=== PATIENT | female | born 1995 ===

== ENCOUNTER 2025-05-13 08:15 | Inpatient (IN) | payer OTHER ==
[~2025-05-13] VITALS: Ht 152.4 cm; Wt 80.7 kg
[2025-05-13 09:12] VITALS: BP 106/69
[2025-05-13 09:15] VITALS: BP 120/77
[2025-05-13 09:49] LABS: BASO % 0.9 % (0.1-1.2); EOS # 0.08 (0.04-0.54); EOS % 1.8 % (0.7-7.0); LYMPH # 1.63 (1.18-3.74); LYMPH % 36.5 % (19.3-53.1); MEAN PLATELET VOLUME 9.60 fl (9.4-12.4); MONO # 0.26 (0.24-0.82); MONO % 5.8 % (4.7-12.5); NEUT # 2.45 (1.56-6.13); NEUT % 55.0 % (34.0-71.1); RED CELL DISTRIBUTION WIDTH 13.9 % (11.6-14.4)
[2025-05-13 09:51] LABS: URINE APPEARANCE Clear; URINE BILIRRUBIN Negative (NEGATIVE); URINE BLOOD Negative; URINE COLOR Yellow; URINE GLUCOSE Negative (NEGATIVE); URINE KETONE Trace (NEGATIVE); URINE LEUKOCYTE Negative; URINE NITRATE Negative; URINE PROTEIN Negative (NEGATIVE); URINE UROBILINOGEN 1.0 E.U./dl
[2025-05-13 09:52] LABS: URINE BACTERIA 7970.2 uL (0.0-1933); URINE EPITHELIAL CELLS 34.5 uL (0.0-38.8); URINE RBC 12.4 uL (0.0-20.8); URINE WBC 12.6 uL (0.0-23.2)
[2025-05-13 09:59] LABS: URINE CAST 0.87 uL (0.0-1.40)
[2025-05-13 10:11] LABS: INR 1.16
[2025-05-13 10:39] LABS: ALT/SGPT 46 U/L (12-78); AST/SGOT 19 U/L (15-37); BILIRUBIN TOTAL 0.33 mg/dL (0.3-1.2); BUN CREA RATIO 10 (7.0-25.0); CREATININE SERUM 0.69 mg/dL (0.55-1.02); GFR 99.90; GLOBULINA 3.4 G/DL (2.4-3.5); GLUCOSE FASTING 80 mg/dL (65-100); OSMOLALITY SERUM 280 MOSM/KG (275-295); RH POSITIVE
[2025-05-13 10:40] LABS: HCG QUANTITATIVE < 1 mUI/mL (1-3)
[2025-05-19] MEDS ORDERED: CEFAZOLIN SODIUM 1,000 MG VIAL IV ONE (13:15)
[2025-05-19] MEDS ORDERED: METRONIDAZOLE/SODIUM CHLORIDE 500 MG/100 ML PIGGYBACK IV ONE (13:15)
[2025-05-19] MEDS ORDERED: POVIDONE-IODINE 118 ML BOTT TOP ONE (13:15)
[2025-05-19] MEDS ORDERED: SUGAMMADEX SODIUM 200 MG/2 ML VIAL IV ONE (16:15)
[2025-05-19] MEDS ORDERED: ACETAMINOPHEN 500 MG GEL..CAP PO SCH (17:13)
[2025-05-19] MEDS ORDERED: GABAPENTIN 300 MG CAPSULE PO SCH (17:14)
[2025-05-19] MEDS ORDERED: RINGERS SOLUTION,LACTATED 1,000 ML IV SCH (17:15)
[2025-05-19] MEDS ORDERED: MORPHINE SULFATE 4 MG/ML VIAL IV ONE (17:55)
[2025-05-19] MEDS ORDERED: KETOROLAC TROMETHAMINE 30 MG VIAL IV SCH (18:00)
[2025-05-19] MEDS ORDERED: KETOROLAC TROMETHAMINE 30 MG VIAL IV ONE (18:25)
[2025-05-19 19:52] VITALS: BP 106/69; O2SAT 98
[2025-05-20 00:05] VITALS: BP 99/60
[2025-05-20 07:17] LABS: BASO % 0.2 % (0.1-1.2); EOS # 0.03 (0.04-0.54); EOS % 0.3 % (0.7-7.0); LYMPH # 1.15 (1.18-3.74); LYMPH % 10.3 % (19.3-53.1); MEAN PLATELET VOLUME 10.00 fl (9.4-12.4); MONO # 0.68 (0.24-0.82); MONO % 6.1 % (4.7-12.5); NEUT # 9.23 (1.56-6.13); NEUT % 82.8 % (34.0-71.1); RED CELL DISTRIBUTION WIDTH 14.0 % (11.6-14.4)
[2025-05-20 08:00] VITALS: BP 103/75
== END 2025-05-20 08:54 | disposition home or self-care (01) | DRG 743 ==
LOC: OB/GYN 05-19 08:15 → O/R 05-19 08:28 → OB/GYN 05-19 12:30
PROVIDERS: ADMIT Student in an Organized Health Care Education/Training Program; ATTEND Student in an Organized Health Care Education/Training Program
PROC: 0UT74ZZ Resection of Bilateral Fallopian Tubes, Percutaneous Endoscopic Approach (ICD-10-PCS; 2025-05-19)
PROC: 0TN74ZZ Release Left Ureter, Percutaneous Endoscopic Approach (ICD-10-PCS; 2025-05-19)
PROC: 0TJB8ZZ Inspection of Bladder, Via Natural or Artificial Opening Endoscopic (ICD-10-PCS; 2025-05-19)
PROC: 8E0W4CZ Robotic Assisted Procedure of Trunk Region, Percutaneous Endoscopic Approach (ICD-10-PCS; 2025-05-19)
PROC: 0UT94ZZ Resection of Uterus, Percutaneous Endoscopic Approach (ICD-10-PCS; principal; 2025-05-19 12:30)
DX: D25.1 Intramural leiomyoma of uterus (principal); N72 Inflammatory disease of cervix uteri; N94.6 Dysmenorrhea, unspecified; R10.2 Pelvic and perineal pain
CPT/HCPCS: 58573; 50715; 52000; S2900